=== PATIENT | male | born 1950 | race Caucasian/White ===

== ENCOUNTER → 2016-04-04 | Outpatient (CLI) | payer MEDICARE, OTHER ==
[~2016-04-04] MED LIST: ALBU8.5H6 INH; ALPR0.5T; ALPR0.5T5 PO; ASCO500T5 PO; CEPH-507 PO; CODE-54; ESCI10TA49 PO; FESO45ML PO; FRSM40T PO; HYDR-707 PO; INSU100V2 SQ; INSU100V32 SQ; INSU500V SC; ITRA100C PO; KCL20TCR PO; LOSA100T8 PO; NEBI5TAB8 PO; OMEG1CAP PO; OXYC1TAB87 PO; RIVA20TA; ROSU20TA; ROSU20TA PO; SOTA80TA PO; WRF2T PO; [UNRECOGNIZED DRUG - CODE] PO
[2016-04-04 14:20] LABS: MEAN CORPUSCULAR HGB CONC 32.7 g/dL (31.0-37.0); MEAN CORPUSCULAR VOLUME 89 FL (80-100); MEAN PLATELET VOLUME 10.6 FL (6.0-9.5); PLATELET COUNT 144 10^3uL (150-450); WHITE BLOOD COUNT 4.55 10^3uL (4.0-11.0)
[2016-04-04 14:26] LABS: BAND NEUTROPHILS % 0 % (0-6); EOSINOPHILS % 3 % (0-4); LYMPHOCYTES # 1.2 #; MONOCYTES # 0.3 #; MONOCYTES % 7 % (3-11); RBC MORPH NORMAL (NORMAL); SEGMENTED NEUTROPHILS % 63 % (51-67); TOTAL CELLS COUNTED 100
[2016-04-04 21:42] LABS: IRON 82 ug/dL (65-175)
[2016-04-04 23:31] LABS: UNBOUND IRON CONTENT 253 ug/dl (126-382)
== END ==
LOC: LAB 14:05
PROVIDERS: ATTEND Internal Medicine Hematology & Oncology
DX: D50.9 Iron deficiency anemia, unspecified (principal)
CPT/HCPCS: 36415; 82728; 83540; 83550; 85007; 85027

== ENCOUNTER → 2016-06-13 | Outpatient (REF) | payer MEDICARE, OTHER | LOC: LAB 09:48 | PROVIDERS: ATTEND Family Medicine | DX: R05 Cough (principal) | CPT/HCPCS: 87070; 87205 ==